=== PATIENT | male | born 1945 | race Caucasian/White ===

== ENCOUNTER 2021-12-31 07:35 | Day surgery (SDC) | payer OTHER ==
[~2021-12-31] VITALS: Ht 180.3 cm; Wt 69.7 kg
[~2021-12-31 07:35] MED LIST: C COMPLEX1000 M1 PO; CO Q10100 MG PO; DERMACINRX FOL1 EAC2 PO; METF500 PO; ZINC50 M3 PO; ZOCOR20 MG PO
--- NOTE | 2021-12-31 08:39 | NUR ---
12/31/21 0839 Mj Sutton HISTORY, CHART, MEDICATIONS AND ALLERGIES REVIEWED BEFORE START OF PROCEDURE. PATIENT CONFIRMS NPO STATUS AND AGREES WITH SCHEDULED PROCEDURE. 3-LEAD EKG REVIEWED WITH PHYSICIAN PRIOR TO START OF PROCEDURE. MONITOR INTACT WITH CONTINUOUS PULSE OXIMETRY,CAPNOGRAPHY, 3-LEAD EKG, INTERMITTENT BP. SUPPLEMENTAL O2 TO BE TITRATED THROUGHOUT PROCEDURE TO MAINTAIN O2 SATURATION ABOVE 90%. PATIENT DETERMINED TO BE ASA APPROPRIATE FOR PROPOFOL SEDATION PRIOR TO START OF PROCEDURE BY
--- NOTE | 2021-12-31 08:43 | NUR ---
History, Chart, Medications and Allergies reviewed before start of procedure. Patient confirms NPO status and agrees with scheduled surgery. Patient States Post-Procedure ride home has been arranged WITH [facility]. COLON PREP WAS COMPLETED WITH CLEAR RESULTS PER PT. LEFT HEARING AID REMOVED AND PLACED IN CONTAINER AT BEDSIDE.
--- NOTE | 2021-12-31 09:40 | NUR ---
Patient up to Ambulate independently. Gait steady. Discharge instructions reviewed with patient. Patient verbalizes understanding. Copy given to patient to take home. Patient States Post-Procedure ride home has been arranged W/
== END 2021-12-31 23:38 | disposition home or self-care (01) ==
LOC: ORSCMMR 07:35 → ORD 08:30 → ORSCMMR 23:38
PROVIDERS: Internal Medicine Gastroenterology
PROC: 0DJD8ZZ Inspection of Lower Intestinal Tract, Via Natural or Artificial Opening Endoscopic (ICD-10-PCS; principal; 2021-12-31 08:30)
DX: Z12.11 Encounter for screening for malignant neoplasm of colon (principal); Z86.010 Personal history of colon polyps; K57.30 Diverticulosis of large intestine without perforation or abscess without bleeding; K64.8 Other hemorrhoids; E11.9 Type 2 diabetes mellitus without complications; E78.00 Pure hypercholesterolemia, unspecified; Z79.84 Long term (current) use of oral hypoglycemic drugs; Z79.899 Other long term (current) drug therapy
CPT/HCPCS: 82947; J2704; J7120

== ENCOUNTER 2022-10-30 06:17 | Day surgery (SDC) | payer OTHER ==
[~2022-10-30] VITALS: Ht 180.3 cm; Wt 71.0 kg
--- NOTE | 2022-10-30 08:18 | NUR ---
10/30/22 0818 Treva Hernandes LIDOCAINE 2% WITH EPI 1:100,000 DILUTED 1:1 WITH NORMAL SALINE TO MAKE LIDOCAINE 1% WITH EPI 1:200,000 FOR INJECTION AT THE OPSITE BY DR MORALES. 5.5ML INJECTED AT OPSITE BY DR MORALES BEFORE SURGERY START. 30ML OF EPI (1MG/ML) USED TO SOAK PLEDGETS FOR PACKING AT THE OPSITE DONE BY DR MORALES.
[2022-10-30 10:48] VITALS: BP 141/76
--- NOTE | 2022-10-30 12:05 | NUR ---
10/30/22 1205 Mely White IV REMOVED. WNL. CATHETER INTACT. FALL RISK GIVEN. PATIENT STATES 2/10 PAIN THROUGHOUT VISIT AND STATED THAT IT WAS A TOLERABLE LEVEL. PATIENT POSSESIONS RETURNED WHICH INCLUDED, WALLET, HEARING AIDS, GLASSES, PEN, AND JACKET. WAS IN ROOM DURING DISCHARGE INSTRUCTIONS.
== END 2022-10-30 12:00 | disposition home or self-care (01) ==
LOC: ORSCSDS 06:17
PROVIDERS: Otolaryngology
PROC: 09TV8ZZ Resection of Left Ethmoid Sinus, Via Natural or Artificial Opening Endoscopic (ICD-10-PCS; principal; 2022-10-30 07:30)
PROC: 09SM4ZZ Reposition Nasal Septum, Percutaneous Endoscopic Approach (ICD-10-PCS; principal; 2022-10-30 07:30)
PROC: 09DR4ZZ Extraction of Left Maxillary Sinus, Percutaneous Endoscopic Approach (ICD-10-PCS; principal; 2022-10-30 07:30)
PROC: 09TU8ZZ Resection of Right Ethmoid Sinus, Via Natural or Artificial Opening Endoscopic (ICD-10-PCS; principal; 2022-10-30 07:30)
DX: J32.4 Chronic pansinusitis (principal); J34.2 Deviated nasal septum; E78.5 Hyperlipidemia, unspecified; E11.9 Type 2 diabetes mellitus without complications; Z79.84 Long term (current) use of oral hypoglycemic drugs; Z79.899 Other long term (current) drug therapy
CPT/HCPCS: 82947; 88305; C2625; J0171; J2250; J2371; J2405; J2704; J3010; J7120

== ENCOUNTER 2023-02-02 19:05 | Emergency (ER) | payer OTHER ==
[~2023-02-02] VITALS: Ht 180.3 cm; Wt 70.3 kg
[2023-02-02] MEDS ORDERED: OZEMPIC0.25 MG/02 SQ (19:27)
[2023-02-02 20:06] VITALS: BP 125/83
[2023-02-02] MEDS ORDERED: CLIN150 PO (20:53)
[2023-02-02] MEDS ORDERED: SULTRIDS PO (20:53)
[2023-02-02] MEDS ORDERED: IBUP600 PO (20:53)
== END 2023-02-02 21:35 | disposition home or self-care (01) ==
LOC: ER 19:05
DX: S61.451A Open bite of right hand, initial encounter (principal); W61.91XA Bitten by other birds, initial encounter; Z88.0 Allergy status to penicillin; Z79.899 Other long term (current) drug therapy
CPT/HCPCS: 73120; 99283-25; A9270

== ENCOUNTER 2024-08-19 03:59 | Emergency (ER) | payer OTHER ==
[~2024-08-19] VITALS: Ht 180.3 cm; Wt 61.2 kg
[~2024-08-19 03:59] MED LIST changes: +ALIGN1 EACH; +Apple Cider Vi300 MG; +CALCIUM CIT 311 EAC7; +CLIN150 PO; +GINKGO60 MG; +GLUCHON; +IBUP600 PO; +MELATONIN 5 MG1 EACH; +OZEMPIC0.25 MG/02 SQ; +POTASSIUM GLUC500 M1; +RED YEAST RICE55 MG; +SULTRIDS PO; +TAMS.4ER PO; +ZYRTEC10 M2 PO
[2024-08-19 04:14] VITALS: BP 107/80
[2024-08-19 04:32] LABS: BASOPHILS ABSOLUTE AUTO 0.04 K/mm3 (0.00-0.23); BASOPHILS PERCENT AUTO 1 % (0-2); EOSINOPHILS ABSOLUTE AUTO 0.02 K/mm3 (0.00-0.68); EOSINOPHILS PERCENT AUTO 0 % (0-6); Hematocrit 36.8 % (37.0-53.0); Hemoglobin 11.6 g/dL (13.5-17.5); IMMATURE GRAN ABSOLUTE AUTO 0.01 K/mm3 (0.00-0.10); IMMATURE GRAN PERCENT AUTO 0 % (0-1); LYMPHOCYTES ABSOLUTE AUTO 0.66 K/mm3 (0.84-5.20); LYMPHOCYTES PERCENT AUTO 11 % (21-46); MONOCYTES ABSOLUTE AUTO 1.01 K/mm3 (0.16-1.47); MONOCYTES PERCENT AUTO 17 % (4-13); Mean Corpuscular HGB Conc 31.5 g/dL (31.5-36.5); Mean Corpuscular Volume 84 fL (80-100); NEUTROPHILS ABSOLUTE AUTO 4.24 K/mm3 (1.96-9.15); NEUTROPHILS PERCENT AUTO 71 % (41-73); NRBC ABSOLUTE 0.00 K/mm3 (0.00-0.02); NRBC Auto 0.0 /100 WBC (0.0-0.2); Platelet Count 415 K/mm3 (150-400); RDW Coefficient Variation 16.6 % (11.7-14.2); RDW Standard Deviation 51.2 fL (35.1-46.3)
[2024-08-19 04:50] LABS: Alanine Aminotransfer (ALT/SGP 25.0 U/L (12-78); Albumin, Blood 2.6 g/dL (3.4-5.0); Albumin/Globulin Ratio 0.7 (0.8-1.8); Anion Gap 7.0 mmol/L (3-11); Aspartate Aminotrans (AST/SGOT 27.0 U/L (12-37); Bilirubin, Total 0.4 mg/dL (0.1-1.0); Blood Urea Nitrogen 23.0 mg/dL (8-24); CO2, Blood 28.0 mmol/L (21-32); Calcium, Blood 8.8 mg/dL (8.5-10.1); Chloride, Blood 104.0 mmol/L (98-108); Creatinine, Blood 0.73 mg/dL (0.60-1.20); Globulin, Blood 3.9 g/dL (2.2-4.0); Glucose, Blood 125.0 mg/dL (70-99); Potassium, Blood 3.8 mmol/L (3.5-5.5); Sodium, Blood 135.0 mmol/L (136-145); Total Protein, Blood 6.5 g/dL (6.4-8.2)
[2024-08-19] MEDS ORDERED: HYDROcodone 5-APAP 325 TAB PO ONE (06:35)
[2024-08-19] MEDS ORDERED: Norco 5-325 Ta1 EACH PO (06:39)
== END 2024-08-19 06:47 | disposition home or self-care (01) ==
LOC: ER 03:59
PROVIDERS: Emergency Medicine
DX: R22.2 Localized swelling, mass and lump, trunk (principal); E11.9 Type 2 diabetes mellitus without complications; E78.5 Hyperlipidemia, unspecified; Z88.0 Allergy status to penicillin; Z79.84 Long term (current) use of oral hypoglycemic drugs; Z79.899 Other long term (current) drug therapy
CPT/HCPCS: 74177; 80053; 85025; 99284-25; A9270; Q9967